=== PATIENT | female | born 1960 | race Caucasian/White ===

== ENCOUNTER → 2017-09-15 17:30 | Outpatient (CLI) | payer OTHER | END | disposition home or self-care (01) | LOC: D.RAD 17:30 | DX: M54.5 Low back pain (principal) ==

== ENCOUNTER → 2018-11-17 08:08 | Outpatient (CLI) | payer OTHER | END | disposition home or self-care (01) | LOC: D.MRI 08:08 | DX: M79.672 Pain in left foot (principal) ==